=== PATIENT | male | born 1980 | race Caucasian/White ===

== ENCOUNTER 2020-10-10 05:08 | Emergency (ER) | payer BC ==
[2020-10-10 05:20] VITALS: BP 171/103; PULSE 84
--- NOTE | 2020-10-10 05:21 | EDM.PDOC ---
ED HPI GENERAL MEDICAL PROBLEM - General Chief Complaint: Upper Extremity Injury/Pain Stated Complaint: LEFT WRIST & ARM PAIN Time Seen by Provider: 10/10/20 05:20 - History of Present Illness INITIAL COMMENTS - FREE TEXT/NARRATIVE: 40-year-old male presents the emergency room with left wrist pain. This is been going on for several weeks now. When patient was traveling through [place] he stopped at a small ER and had this evaluated x-rays were unrevealing at that point. He has been wearing a splint with this that he was given in that emergency room he wore that splint out while at work. Now he is wearing another splint that does not work quite as well. He has been keeping the splint on pretty tight. He has been using ibuprofen without much success. Left Arm Pain Score (Numeric/FACES): 7 - Related Data Allergies Allergy/AdvReac Type Severity Reaction Status Date / Time cefaclor [From [facility]] Allergy Hives Verified 10/10/20 05:16 Penicillins Allergy Hives Verified 10/10/20 05:16 Home Meds: Home Meds FLUoxetine HCl [Prozac] 20 mg PO DAILY 10/10/20 [History] buPROPion HCL [Bupropion Xl] 300 mg PO DAILY 10/10/20 [History] Past Medical History - Past Health History Medical/Surgical History: Denies Medical/Surgical History Social & Family History - Caffeine Use Caffeine Use: Reports: None - Living Situation & Occupation Living situation: Reports: Single Occupation: Employed Review of Systems - Review of Systems Review Of Systems: See Below Constitutional: Reports: No Symptoms Respiratory: Reports: No Symptoms Cardiovascular: Reports: No Symptoms GI/Abdominal: Reports: No Symptoms ED EXAM, GENERAL - Physical Exam Exam: See Below Exam Limited By: No Limitations General Appearance: Alert, No Apparent Distress, Other (His blood pressure is up however he says that it is always up when he goes to the doctor.) Respiratory/Chest: No Respiratory Distress, Lungs Clear, Normal Breath Sounds Cardiovascular: Regular Rate, Rhythm, No Edema, No Murmur Extremities: Other (Examination of his left wrist shows wrist that had a splint on too tight. He has difficulty moving his wrist because of tightness. He has no snuffbox tenderness no other areas of point tenderness. Neurovascular status is intact) Course - Vital Signs Last Recorded V/S: Last Vital Signs Temp 36.6 C 04/30/21 05:16 Pulse 84 10/10/20 05:16 Resp 15 10/10/20 05:16 BP 171/103 H 10/10/20 05:16 Pulse Ox 99 10/10/20 05:16 - Orders/Labs/Meds Orders: Active Orders 24 hr Category Date Time Status Wrist Comp Min 3V Lt [CR] Stat Exams 10/10/20 05:33 Taken - Re-Assessments/Exams Free Text/Narrative Re-Assessment/Exam: 10/10/20 06:21 I did order some x-rays of the wrist which are negative for acute fracture dislocation. At the time the patient came back he was moving his wrist little bit better in the splint evidence of tightness had decreased somewhat not completely. Had a long discussion with the patient I think he is using the splints to help him do things he really should not be doing. He understands this and will find other activities at work. He is been using ibuprofen on an intermittent basis taking at 1000 mg at 1 time I told him not to do this is max dose is 800 mg 3 times a day no more. He is advised also that he is to keep an eye on his blood pressure he has a blood pressure cuff at home and will start monitoring this and then will follow up in the clinic. Departure - Departure Time of Disposition: 06:10 Disposition: Home, Self-Care 01 Clinical Impression: Strain of wrist, left - Discharge Information Instructions: Wrist Sprain, Adult Referrals: Parisa Lamar PA-C [Primary Care Provider] - Forms: ED Department Discharge Additional Instructions: Return to the emergency room with any questions problems or worsening symptoms. Avoid activities that aggravate your wrist. Ibuprofen as needed. If you use your wrist splint, do not wear it too tight. Follow-up in the clinic in 1 week if needed. Sepsis Event Note (ED) - Focused Exam Vital Signs: Vital Signs Temp Pulse Resp BP Pulse Ox 10/10/20 05:16 36.6 C 84 15 171/103 H 99 - My Orders Last 24 Hours: My Active Orders 10/10/20 05:33 Wrist Comp Min 3V Lt [CR] Stat - Assessment/Plan Last 24 Hours: My Active Orders 10/10/20 05:33 Wrist Comp Min 3V Lt [CR] Stat
--- NOTE | 2020-10-10 07:58 | CR ---
Left wrist: 4 views of the left wrist were obtained. Comparison: No previous left wrist study is available. Small calcification is seen off the tip of the ulnar styloid process which is likely old. Joint spaces are maintained. No discrete fracture, dislocation or other bony abnormality is appreciated. Impression: 1. Small calcification off the tip of the ulnar styloid process most likely old. 2. Nothing acute is appreciated on left wrist study. Diagnostic code #2
== END 2020-10-10 06:19 | disposition home or self-care (01) ==
LOC: JD.ED 05:08
DX: S66.912A Strain of unspecified muscle, fascia and tendon at wrist and hand level, left hand, initial encounter (principal); Z88.1 Allergy status to other antibiotic agents; Z88.0 Allergy status to penicillin; Z79.899 Other long term (current) drug therapy; X58.XXXA Exposure to other specified factors, initial encounter
CPT/HCPCS: 73110-26-LT; 73110-LT; 99282; 99283

== ENCOUNTER 2023-01-22 07:45 | Emergency (ER) | payer BC ==
[2023-01-22 09:28] VITALS: BP 146/88; PULSE 74
== END 2023-01-22 08:51 | disposition home or self-care (01) ==
LOC: JD.ED 07:45
DX: M10.062 Idiopathic gout, left knee (principal); Z79.899 Other long term (current) drug therapy; Z88.0 Allergy status to penicillin; Z88.1 Allergy status to other antibiotic agents
CPT/HCPCS: 99283

== ENCOUNTER 2024-11-28 14:53 | Emergency (ER) | payer BC | END 2024-11-28 18:00 | disposition left against medical advice (07) | LOC: JD.ED 14:53 | DX: Z53.21 Procedure and treatment not carried out due to patient leaving prior to being seen by health care provider (principal) ==